=== PATIENT | male | born 1955 | race Caucasian/White ===

== ENCOUNTER 2019-04-17 11:40 | Emergency (ER) | payer BC, SELFPAY ==
[2019-04-17 11:58] VITALS: BP 134/87; PULSE 84; RESP 16; TEMP 37.7; O2SAT 98
[2019-04-17] MEDS: TET,DIPH,PERTUSS(ACELL),VAC/PF 0.5 ML SYRINGE IM (13:22)
--- NOTE | 2019-04-17 13:41 | DI.RAD.S_ITS ---
PROCEDURE: XR FINGER RT MIN 2V INDICATIONS: deep laceration on distal 4th finger TECHNIQUE: AP hand, 2 views of the 4th finger(s) acquired. COMPARISON: None. FINDINGS: Bones: There is a mildly displaced comminuted fracture of the proximal aspect of the distal phalanx of the 4th digit. Soft tissues: No suspicious soft tissue calcifications. IMPRESSION: 4th digit fracture. Dictated by: Felix Cheung M.D. on 04/17/2019 at 14:07 Approved by: Felix Cheung M.D. on 04/17/2019 at 14:08
[2019-04-17] MEDS: LIDO 1%/SOD BICARB 8.4% (10ML) 10 ML SYRINGE INJ (14:05)
[2019-04-17] MEDS: BACITRACIN OINT 0.9 GM PCKT 1 APPLIC TOP (14:05)
[2019-04-17] MEDS: ONDANSETRON 4 MG ODT SL (14:05)
--- NOTE | 2019-04-17 14:31 | ED_ITS ---
HPI - Extremity Injury (Upper) <ALEJANDRA Damon - Last Filed: 04/18/19 01:47> General Chief Complaint: Extremity Injury, Upper Stated Complaint: states tore pad off ring finger of right hand Time Seen by Provider: 04/17/19 13:23 Source: patient Mode of arrival: Ambulatory Limitations: no limitations History of Present Illness HPI narrative: This is a pleasant 63-year-old male, nonsmoker, who presents with significant other after injured his right 4th distal phalanx prior arriving to ED. Patient reports he had injured affected site when he was working on [employer] she had metal cut his finger pad. Patient is unsure of last tetanus immunization. Patient reports able to move affected finger without difficulty and denies tingling or numbness to affected finger. Patient had put Band-Aid as pressure dressing before coming into ED. Right dominant hand. Related Data Previous Rx's Medication Instructions Recorded cephalexin [Keflex] 500 mg PO Q6H 10 Days #40 cap 04/17/19 Allergies Allergy/AdvReac Type Severity Reaction Status Date / Time No Known Drug Allergies Allergy Verified 04/17/19 12:02 Review of Systems <ALEJANDRA Damon - Last Filed: 04/18/19 01:47> Review of Systems ROS Unobtainable: All systems reviewed & are unremarkable except as noted in HPI and below PFSH <ALEJANDRA Damon - Last Filed: 04/18/19 01:47> Social History Smoking Status: Never smoker Social History Smoking Status: Never smoker Exam <ALEJANDRA Damon - Last Filed: 04/18/19 01:47> Narrative Exam Narrative: General appearance: well developed, well nourished, in no acute distress. Head: normocephalic, atraumatic, no scalp lesions, non-tender. Eye: pupil equal, round. EOMI. Nose: nares patent. Oral: mucosa moist. Neck/Thyroid: neck supple, full range of motion, no visible masses. Skin: Degloving like laceration to R 4th distal phalanx finger pad. no suspicious rashes, lesions over visible areas. Warm and dry. Heart: no clubbing, no cyanosis, no edema. Lungs: Breathing even and unlabored. No stridor. No accessory muscles used. Chest: normal shape and expansion. Abdomen: non-obese, non-distended. Neurologic: alert and oriented. Cognitive exam, [employer] and PNS grossly intact on informal exam. Psych: good eye contact, normal affect. Initial Vital Signs Initial Vital Signs: Vital Signs Temperature 99.8 F H 04/17/19 11:58 Pulse Rate 84 04/17/19 11:58 Respiratory Rate 16 04/17/19 11:58 Blood Pressure 134/87 04/17/19 11:58 Pulse Oximetry 98 04/17/19 11:58 Extrem Right upper extremity: hand (Fourth distal phalanx) Details: normal capillary refill, neuromotor exam normal, neurosensory exam normal, tendon exam normal, tenderness, vascular exam Details: radial pulse present, normal ROM of fingers and laceration (degloving like laceration involving 4 distal finger pad) <Erik Fishman DO - Last Filed: 04/18/19 09:09> Initial Vital Signs Initial Vital Signs: Vital Signs Temperature 99.8 F H 04/17/19 11:58 Pulse Rate 84 04/17/19 11:58 Respiratory Rate 16 04/17/19 11:58 Blood Pressure 134/87 04/17/19 11:58 Pulse Oximetry 98 04/17/19 11:58 Procedures <ALEJANDRA Damon - Last Filed: 04/18/19 01:47> Laceration Repair Laceration 1: Site: upper extremity (4th finger) Side (If applicable): right Size (cm): 3 Description: flap Depth: simple, single layer Local Anesthetic: lidocaine 1% and with bicarb Amount of anesthesia used (mL): 2 (digital nerve block) Pre-repair: wound explored and irrigated extensively Skin layer closed with: nylon Size (cm): 4-0 Number of sutures: 5 Technique: simple, interrupted Orthopedic Splinting/Casting Injury #1: Side: right Upper Extremity Injury Location: finger Upper Extremity Immobilizer: aluminum form splint Post splinting neuro exam: intact Post splinting vascular exam: intact Placed by: Nursing Scores <ALEJANDRA Damon - Last Filed: 04/18/19 01:47> GCS Josie coma scale eye opening: Spontaneous Josie coma scale verbal response: Orientated Rebuck coma scale motor response: Obey commands Josie coma scale total score: 15 Course <Moses GermanMarianaDarianALEJANDRA martínez - Last Filed: 04/18/19 01:47> Orders Ordered: Discontinued Medications Bacitracin (Bacitracin) 1 applic TOP NOW ONE Stop: 04/17/19 13:30 Last Admin: 04/17/19 14:05 Dose: 1 applic Documented by: SOHA Diphtheria/Tetanus/Acell Pertussis (Adacel) 0.5 ml IM .ONCE ONE Stop: 04/17/19 13:19 Last Admin: 04/17/19 13:22 Dose: 0.5 ml Documented by: LEXI Lidocaine/Sodium Bicarbonate (Buffered Lidocaine 10 Ml Syr) 10 ml INJ NOW ONE Stop: 04/17/19 13:30 Last Admin: 04/17/19 14:05 Dose: 10 ml Documented by: SOHA Ondansetron HCl (Zofran Odt) 4 mg SL NOW ONE Stop: 04/17/19 13:42 Last Admin: 04/17/19 14:05 Dose: 4 mg Documented by: SOHA Vital Signs Vital signs: Vital Signs - 8 hr 04/17/19 11:58 Temperature 99.8 F H Pulse Rate 84 Respiratory Rate 16 Blood Pressure 134/87 Pulse Oximetry 98 <Erik Fishman DO - Last Filed: 04/18/19 09:09> Orders Ordered: Discontinued Medications Bacitracin (Bacitracin) 1 applic TOP NOW ONE Stop: 04/17/19 13:30 Last Admin: 04/17/19 14:05 Dose: 1 applic Documented by: SOHA Diphtheria/Tetanus/Acell Pertussis (Adacel) 0.5 ml IM .ONCE ONE Stop: 04/17/19 13:19 Last Admin: 04/17/19 13:22 Dose: 0.5 ml Documented by: LEXI Lidocaine/Sodium Bicarbonate (Buffered Lidocaine 10 Ml Syr) 10 ml INJ NOW ONE Stop: 04/17/19 13:30 Last Admin: 04/17/19 14:05 Dose: 10 ml Documented by: SOHA Ondansetron HCl (Zofran Odt) 4 mg SL NOW ONE Stop: 04/17/19 13:42 Last Admin: 04/17/19 14:05 Dose: 4 mg Documented by: SOHA Vital Signs Vital signs: Vital Signs - 8 hr 04/17/19 11:58 Temperature 99.8 F H Pulse Rate 84 Respiratory Rate 16 Blood Pressure 134/87 Pulse Oximetry 98 [facility] - Extremity Injury (Upper) <ALEJANDRA Damon - Last Filed: 04/18/19 01:47> Differential Diagnosis Differential diagnosis: Likely finger sprain and other (Laceration, open finger fracture) Medical Records Attestation: I reviewed the patient's medical records. Imaging Data XR-finger: Radiologist's impression: [address] [address] XRay Report Signed Patient: Krishna Ndiaye EMR#: [id number] : 1955cct:[id number] Age/Sex: 63 / MDate of Service: 04/17/19 Loc: ED Accession Number: [id number] Procedure: XR finger RT min 2V Ordering Provider: Moses Mendez PROCEDURE: XR FINGER RT MIN 2V INDICATIONS: deep laceration on distal 4th finger TECHNIQUE: AP hand, 2 views of the 4th finger(s) acquired. COMPARISON: None. FINDINGS: Bones: There is a mildly displaced comminuted fracture of the proximal aspect of the distal phalanx of the 4th digit. Soft tissues: No suspicious soft tissue calcifications. IMPRESSION: 4th digit fracture. Dictated by: Felix Cheung M.D. on 04/17/2019 at 14:07 Approved by: Felix Cheung M.D. on 04/17/2019 at 14:08 [facility] Narrative Medical decision making narrative: This is pleasant 63-year-old gentleman who injured his right 4th finger pad on a matter sheet as degloving pattern when his right hand got caught on a tailgate of a trailer. Patient had full active range of motion finger against the resistant without difficulty and cap refill was intact as last 2 seconds with normal sensation. Deep laceration was repaired by sutures. Please see procedural note and patient tolerated well. Tdap was updated today. X-ray test on affected finger showed mildly displaced comminuted fracture of the proximal aspect of the distal phalanx of right 4th finger. After the laceration has repaired affected finger with dressed in bulky dressing and splinted on aluminum finger splint and RICE therapy advised. Wound care at home instruction has been provided. Advised to follow up with his primary care physician in 2-3 days for wound recheck and suture removal in 7-10 days. Return precautions were discussed with patient and spouse. Patient was discharged to home with Keflex for 10 day course q.i.d. dose or open fracture. Patient also was referred to [facility] orthopedist follow for open finger fracture. Patient and spouse agree with treatment plan and no further questions were expressed at this time. Discharge Plan Departure Patient Disposition: Home Clinical Impression: Open fracture of finger of right hand Qualifiers: Encounter type: initial encounter Finger: ring finger Phalanx: distal Fracture alignment: displaced Qualified Code(s): S62.634B - Displaced fracture of distal phalanx of right ring finger, initial encounter for open fracture Discharge Date/Time: 04/17/19 14:56 Instructions: DI for Open Fracture Activity Restrictions/Additional Instructions: You have been diagnosed with [degloving type of laceration with mildly displaced open fracture on right 4th fingertip.]. What to do: *Take your medications as directed. Please start antibiotic medication Keflex as soon as possible and for next 10 days. Please take [id number] Tylenol and/or Motrin as needed for discomfort. Please elevate affected hand above chest level and use ice pack next couple of days for swelling and inflammation. Please do not get your wound soaked in the water until suture removal. Keep your dressing intact for next 24 hrs. After then, you could remove your dressing, wash with soap and water. Pat dry with clean paper towel and dress it with antibiotic ointment. You can change dressing as needed and daily. Please monitor for signs and symptoms for infection such as increasing redness, swelling, warmth, pain, fever, purulent discharge. If this occurs, please return to ED or follow up with your primary care physician since your wound may be gotten infected. Please follow up with your primary care provider in 2-3 days for recheck wound. Your suture should be removed [ 7-10 ] days. This can be done by your primary provider, walk-in clinic or here in ED. Please keep your wound clean, dry and intact all times. * please follow up with [facility] next week as well for fracture. Prescriptions: New cephalexin [Keflex] 500 mg capsule 500 mg PO Q6H 10 Days Qty: 40 RF: 0 Referrals: [facility] [Outside] Brandi Zafar MD [Primary Care Provider] -
[2019-04-17 14:51] VITALS: BP 127/74; PULSE 76; RESP 16; O2SAT 96
--- NOTE | 2019-04-17 14:58 | PC.NURSE ---
Tubeguaze dressing with alum. splint per providers order
== END 2019-04-17 14:56 | disposition home or self-care (01) ==
PROVIDERS: Emergency Provider Nurse Practitioner Family; PCP Family Medicine
DX: S62.634B Displaced fracture of distal phalanx of right ring finger, initial encounter for open fracture (principal); Z23 Encounter for immunization
CPT/HCPCS: 12002; 29130; 73140; 90471; 99282; 99283; 90715

== ENCOUNTER 2024-06-01 08:02 | Emergency (ER) | payer MEDICARE, OTHER, SELFPAY ==
[2024-06-01] VITALS (9 sets, daily range): BP systolic 106–122; BP diastolic 66–77; PULSE 59–71; RESP 20; TEMP 36.5; O2SAT 96–100; BMI 31.5
--- NOTE | 2024-06-01 08:20 | DI.RAD.S_ITS ---
PROCEDURE: XR WRIST RT MIN 3V INDICATIONS: fall TECHNIQUE: 4 views of the wrist were acquired. COMPARISON: None. FINDINGS: Bones: No acute fractures or dislocations. No suspicious bony lesions. Remote fracture of the ulnar styloid. Soft tissues: No suspicious soft tissue calcifications. IMPRESSION: No acute bony abnormality. Dictated by: Nicola Orellana M.D. on 06/01/2024 at 8:56 Approved by: Nicola Orellana M.D. on 06/01/2024 at 8:57
--- NOTE | 2024-06-01 09:09 | ED_ITS ---
HPI - Extremity Injury (Upper) General Chief Complaint: Extremity Injury, Upper Stated Complaint: Might have broken right wrist Time Seen by Provider: 06/01/24 08:12 Source: patient Mode of arrival: Ambulatory History of Present Illness HPI narrative: 68-year-old male with complaint of right wrist pain. Patient was adjusting the time on his clock in his barn when the electricity went out and patient came down about 2 ft ladder thought he was on the floor when he was not fell backwards onto his wrist. Patient states he was deformity he does have pain, notes a little bit of numbness tingling in fingers 1 through 3. Does have fairly good range of motion. Can take his fingers through full range of motion no weakness appreciated. Denies any other injuries. Denies hitting his head no loss of consciousness, no nausea or vomiting. Patient denies any other injuries. Denies daily prescription medications. No tobacco, occasional alcohol, no recreational drugs. Related Data Previous Rx's Medication Instructions Recorded hydrocodone 5 mg-acetaminophen 325 1 tab PO Q6H PRN pain #10 tabs 06/01/24 mg tablet Allergies Allergy/AdvReac Type Severity Reaction Status Date / Time No Known Drug Allergies Allergy Verified 04/17/19 12:02 Review of Systems Review of Systems ROS Unobtainable: All systems reviewed & are unremarkable except as noted in HPI and below Patient History Social History Smoking Status: Never smoker Smoking Status: Never smoker alcohol intake frequency: 0-2 drinks per day Substance Use Type: does not use Exam Narrative Exam Narrative: GENERAL: Alert and oriented x three, mild distress. HEENT: Head normocephalic, atraumatic, EOMI, pupils reactive, face symmetric, moist mucous membranes NECK: Supple, full range of motion CARDIOVASCULAR: Regular rate and rhythm without murmurs, rubs or gallops. RESPIRATORY: Breath sounds equal bilaterally, no wheezes rales or rhonchi. ABDOMEN: Soft, nontender. Normoactive bowel sounds all 4 quadrants. No guarding or rebound, rigidity, no mass EXTREMITIES: Normal range of motion, no clubbing. Mild edema of the wrist, patient does not appear to have some deformity at the proximal and wrist on the dorsum. Patient slowly mildly tender throughout the wrist and hand. No discrete bony tenderness. Patient has full range of motion of all 5 fingers normal flexion, extension adduction and abduction, can make okay sign with all 5 fingers no difficulty with movement of the thumb. Endorses some did increased sensation of fingers 1 2 and 3 but does have sensation to light touch with cap refill less than 2 seconds in all 5 fingers 2+ radial pulse. Neurovascularly intact. No ecchymosis appreciated. No warmth or erythema. NEUROLOGICAL: Cranial nerves II through XII grossly intact. Moving all extremities SKIN: Warm, dry, no petechiae, no rashes or lesions. Initial Vital Signs Initial Vital Signs: Vital Signs Blood Pressure 112/66 06/01/24 08:08 Course Orders Ordered: Discontinued Medications Acetaminophen (Acetaminophen 325 Mg Tablet) 975 mg PO NOW ONE Stop: 06/01/24 09:16 Last Admin: 06/01/24 10:08 Dose: 975 mg Documented By: THEE Vital Signs Vital signs: Vital Signs - 8 hr 06/01/24 08:10 Temperature 97.7 F Pulse Rate 67 Respiratory Rate 20 Blood Pressure 112/66 Pulse Oximetry 98 Oxygen Delivery Method Room Air MDM - Extremity Injury (Upper) Imaging Data Extremity x-ray #1: Radiologist's Impression: [address] [address] XRay Report Signed Patient: Krishna Ndiaye MR#: [id number] : 1955 Acct:[id number] Age/Sex: 68 / M Date of Service: 06/01/24 Loc: ED Accession Number: [id number] Procedure: XR wrist RT min 3V Ordering Provider: Radha Yap D.O. PROCEDURE: XR WRIST RT MIN 3V INDICATIONS: fall TECHNIQUE: 4 views of the wrist were acquired. COMPARISON: None. FINDINGS: Bones: No acute fractures or dislocations. No suspicious bony lesions. Remote fracture of the ulnar styloid. Soft tissues: No suspicious soft tissue calcifications. IMPRESSION: No acute bony abnormality. Dictated by: Nicola Orellana M.D. on 06/01/2024 at 8:56 Approved by: Nicola Orellana M.D. on 06/01/2024 at 8:57 [facility] Narrative Medical decision making narrative: R wrist xray negative for acute change. Reviewed with radiologist for possible dislocation versus additional fracture. They did review images also compared to prior finger x-rays no supple radial fracture but well aligned but otherwise feel imaging and joint spaces with no dislocation appreciated. Patient placed in splint, neurovascularly intact, does note some mild tingling in fingers 1 [address] Encinas orthopedic surgery: Discussed concern for possible dislocation although 2 separate radiologist read as normal except for what appears to be old ulnar styloid fracture there was questionable radial fracture with Dr. Valdez but no dislocation appreciated. Reviewed my concern as patient does not appear to have some deformity. We will place patient in splint with follow up. Patient does appear to have some deformity and numbness tingling in fingers 1 2 and 3. Refused findings with the patient, I still have concern for injury such as dislocation or fracture and discussed with patient that we would like for him to follow up with the Orthopedic surgery. Discharge Plan Departure Patient Disposition: Home Clinical Impression: Pain and swelling of right wrist Instructions: DI for Wrist Fracture Activity Restrictions/Additional Instructions: Please follow up with Orthopedic surgery, call today to set up a follow up appointment. I did speak with the on-call orthopedic surgeon Dr. Encinas. I reviewed your images with Radiology and you do appear to have an old ulnar styloid fracture there is a questionable change to the radial bone but no report of dislocation. Please follow-up with Orthopedic surgery for recheck. You can take Ibuprofen up to 600 mg every 6 hours and/or acetaminophen up to a 1000 mg every 6 hours as needed for pain. If inadequate for pain you can take [place] 1-2 tablets every 6 hours with ibuprofen but do not take with Tylenol or acetaminophen. Splint Care: Keep splint clean and dry. Elevated affected body part to decrease swelling. OK to use ice pack on the affected body part. Use for 15-20 minutes each time, for 5-6x per day. If you develop worsening pain, numbness, tingling, discoloration of the affected body part, loosen the splint by loosening the SAMRA wrap, and either see your doctor for an urgent re-assessment, or return to the Emergency Department. Return to the Emergency Department for any new or worsening symptoms. Prescriptions: New hydrocodone-acetaminophen 5-325 mg tablet 1 tab PO Q6H PRN (Reason: pain) Qty: 10 0RF Referrals: Kyrie Encinas MD [Physician] - Brandi Zafar MD [Primary Care Provider] - Stand Alone Forms: Patient Portal/API/Survey
[2024-06-01] MEDS: ACETAMINOPHEN 325 MG TABLET 975 MG PO (10:08)
== END 2024-06-01 10:57 | disposition home or self-care (01) ==
PROVIDERS: Emergency Provider Emergency Medicine; PCP Family Medicine
DX: M25.431 Effusion, right wrist (principal); M25.531 Pain in right wrist; W11.XXXA Fall on and from ladder, initial encounter
CPT/HCPCS: 29125; 73110; 99283; 99284

== ENCOUNTER → 2024-06-04 17:53 | Outpatient (CLI) | payer MEDICARE, SELFPAY ==
--- NOTE | 2024-06-04 17:56 | DI.MRI.S_ITS ---
PROCEDURE: MR WRIST RT WO CON INDICATIONS: RIGHT WRIST MRI EVALUATE TENDONS AND LIGAMENTS TECHNIQUE: Noncontrast coronal proton density fast spin echo and T2 fast spin echo with fat saturation; coronal 3-D gradient echo, axial T1 spin echo and T2 fast spin echo with fat saturation, sagittal T1 spin echo through the wrist. COMPARISON: [facility], CR, XR WRIST RT MIN 3V, 06/01/2024, 8:21. FINDINGS: Image quality: Excellent. Bones and cartilage: Mildly displaced fracture of the waist of the scaphoid with surrounding osseous edema. Small minimally displaced displaced intra-articular fracture is seen at the dorsal aspect of the radius with mild osseous edema. Remote prior ununited fracture at the base of the ulnar styloid without edema. Background [id number] osteoarthrosis. Carpal ligaments: The dorsal and volar bands of the scapholunate ligament appear intact. Suspected degenerative perforation or partial tearing at the membranous portion. Lunotriquetral ligament is intact. On sagittal images, the pisohamate ligament appears intact. Triangular fibrocartilage complex: The triangular fibrocartilage appears intact. The ulnar styloid attachment is attached to the ununited styloid fracture fragment. Tendons and soft tissues: Mild soft tissue edema surrounding the wrist, most notable dorsally. Mild fluid is seen tracking along the flexor tendons in the carpal tunnel. The ulnar nerve appears normal within Guyon's canal. Fluid is seen in the 2nd and 3rd extensor compartments. Moderate tendinosis and tenosynovitis involving the extensor carpi ulnaris tendon. IMPRESSION: 1. Mildly displaced fracture of the waist of the scaphoid with surrounding osseous edema. No signs of proximal pole osteonecrosis. 2. Small minimally displaced intra-articular fracture of the dorsal aspect of the distal radial articular surface. Mild adjacent osseous edema. 3. Multifocal flexor and extensor tenosynovitis, which may be reactive. Approved by: Scott Henderson M.D. on 06/05/2024 at 11:01
== END ==
PROVIDERS: PCP Family Medicine; Referring Provider Orthopaedic Surgery; Visit Provider Orthopaedic Surgery
DX: S62.021A Displaced fracture of middle third of navicular [scaphoid] bone of right wrist, initial encounter for closed fracture (principal); S52.571A Other intraarticular fracture of lower end of right radius, initial encounter for closed fracture; M19.031 Primary osteoarthritis, right wrist; M65.931 Unspecified synovitis and tenosynovitis, right forearm; X58.XXXA Exposure to other specified factors, initial encounter
CPT/HCPCS: 73221

== ENCOUNTER → 2024-07-21 07:08 | Outpatient (CLI) | payer MEDICARE, SELFPAY ==
[2024-07-21 07:54] LABS: Add Manual Diff / Slide Review NO; Basophils Absolute Auto 0 /uL (0-100); Basophils Percent Auto 0.7 % (0-2); Eosinophils Absolute Auto 200 /uL (0-450); Eosinophils Percent Auto 2.8 % (2-4); Hematocrit 47.1 % (41-53); Lymphocytes Absolute Auto 2200 /uL (1100-4500); Lymphocytes Percent Auto 33.4 % (25-40); Mean Corpuscular HGB Conc 33.9 % (30-36); Mean Corpuscular Hemoglobin 30.5 PG (26-34); Mean Corpuscular Volume 90.1 fL (80-100); Monocytes Absolute Auto 600 /uL (0-900); Neutrophils Absolute Auto 3600 /uL (1500-7000); Neutrophils Percent Auto 54.1 % (50-75); Platelet Count 249 X10^3/uL (150-400); Red Blood Cell Count 5.23 X10^6/uL (4.5-5.9); Red Cell Distribution Width 13.4 % (11.6-14.8); White Blood Cell Count 6.6 X10^3/uL (4.5-11.0)
[2024-07-21 07:59] LABS: Hemoglobin A1C% w Est Avg Glu 5.8 % (4.0-6.0)
[2024-07-21 08:34] LABS: Alanine Aminotransferase 33 IU/L (<50); Albumin 4.4 g/dL (3.5-5.0); Albumin Globulin Ratio 1.6 (1.0-2.8); Alkaline Phosphatase 72 U/L (38-126); Aspartate Aminotransferase 29 IU/L (17-59); BUN Creatinine Ratio 17.6 (6-22); Bilirubin Total 0.6 mg/dL (0.2-1.3); Blood Urea Nitrogen 15 mg/dL (9-20); Calcium 9.7 mg/dL (8.4-10.2); Carbon Dioxide 24 mmol/L (22-32); Chloride 105 mmol/L (98-107); Cholesterol 192 mg/dL (140-199); Estimated Glomerular Filt Rate > 60 mL/min (>60); Globulin 2.7 g/dL (1.7-4.1); Glucose 112 mg/dL (80-110); HDL Cholesterol 72 mg/dL (40-60); HEMOLYSIS < 15 (0-50); LDL Cholesterol Calculated 92 mg/dL (<100); Potassium 4.3 mmol/L (3.4-5.1); Sodium 137 mmol/L (137-145); Total Protein 7.1 g/dL (6.3-8.2); Triglycerides 140 mg/dL (35-150)
[2024-07-21 09:04] LABS: Thyroid Stimulating Hormone 1.45 uIU/mL (0.47-4.68)
[2024-07-21 09:05] LABS: Prostate Specific Antigen 2.35 ng/mL (0.10-4.00)
[2024-07-21 09:23] LABS: Vitamin B12 764 pg/mL (239-931)
[2024-07-21 13:27] LABS: Folate > 20.0 ng/mL (2.76-20.0)
[2024-07-22 03:37] LABS: Apolipoprotein B 83 mg/dL (<90)
== END ==
LOC: LAB 07:11
PROVIDERS: PCP Family Medicine; Referring Provider Naturopath; Visit Provider Naturopath
DX: Z00.00 Encounter for general adult medical examination without abnormal findings (principal); E78.5 Hyperlipidemia, unspecified; R35.0 Frequency of micturition; R53.83 Other fatigue
CPT/HCPCS: 36415; 80053; 80061; 82172; 82607; 82746; 83036; 84153; 84443; 85025